=== PATIENT | female | born 1980 | race Asian ===

== ENCOUNTER 2016-09-23 13:03 | Day surgery (SDC) | payer BC, OTHER ==
[~2016-09-23] VITALS: Ht 160 cm; Wt 66.0 kg
[~2016-09-23 13:03] MED LIST: DEXAMETHASONE 4 MG/ML, 1ML ONE; ONDANSETRON 2MG/ML, 2ML ONE; PROPOFOL 10 MG/ML, 20ML ONE
[2016-09-23] MEDS ORDERED: LACTATED RINGERS 1,000 ML IV SCH (13:41)
[2016-09-23] MEDS ORDERED: DOXYCYCLINE 100 MG in DEXTROSE 5% 250 ML IVPB ONE (14:00)
[2016-09-23] MEDS ORDERED: LIDOCAINE 1%-EPI 1:100K, 50ML ONE (14:01)
[2016-09-23] MEDS ORDERED: OXYTOCIN 10 UNITS/ML, 1ML ONE (14:01)
[2016-09-23] MEDS ORDERED: MISOPROSTOL 200 MCG TABLET ONE (14:01)
[2016-09-23] MEDS ORDERED: METHYLERGONOVINE 0.2 MG/ML IM ONE (14:01)
[2016-09-23] MEDS ORDERED: SILVER NITRATE STICK TP ONE (14:01)
[2016-09-23 14:12] VITALS: BP 114/77
[2016-09-23] MEDS ORDERED: NONE PER PT (14:12)
[2016-09-23] MEDS ORDERED: FENTANYL PF 100 MCG/2ML ONE ×2 (14:20→15:58)
[2016-09-23] MEDS ORDERED: MIDAZOLAM 1 MG/ML, 2ML ONE (14:20)
[2016-09-23] MEDS ORDERED: OXYcodone 5 MG/5 ML ORAL.SOL UDC PO PRN (14:30)
[2016-09-23] MEDS ORDERED: FENTANYL PF 100 MCG/2ML IV PRN (14:30)
[2016-09-23] MEDS ORDERED: PROMETHAZINE 25 MG/ML, 1ML IV PRN (14:30)
[2016-09-23] MEDS ORDERED: ACETAMINOPHEN 325 MG TABLET PO PRN (14:30)
[2016-09-23] MEDS ORDERED: ACETAMINOPHEN 650 MG/20.3 ML UDC ONE (15:58)
[2016-09-23] MEDS ORDERED: OXYcodone 5 MG/5 ML ORAL.SOL UDC ONE (15:58)
[2016-09-23] MEDS ORDERED: ACETAMINOPHEN 325 MG TABLET ONE (15:59)
== END 2016-09-23 18:00 | disposition home or self-care (01) ==
LOC: OUT 13:03
PROVIDERS: ATTEND Student in an Organized Health Care Education/Training Program
DX: O02.1 Missed abortion (principal); Z3A.14 14 weeks gestation of pregnancy
CPT/HCPCS: 36415; 59821; 76998; 85025; 86850; 86900; 86923; 88305; J1100; J2210; J2405; J2704; J3010; J7120; J2250; J2590